=== PATIENT | male | born 1935 | race Caucasian/White ===

== ENCOUNTER 2020-03-27 12:33 | Inpatient (IN) ==
[2020-03-27] MEDS ORDERED: IOPAMIDOL 100 ML BOTTLE IV ONE (12:34)
[2020-03-27] MEDS ORDERED: ONDANSETRON 4 MG/2 ML VIAL IV ONE (12:56)
[2020-03-27] MEDS ORDERED: LACTATED RINGERS 1,000 ML IV ONE ×2 (12:56→15:59)
--- NOTE | 2020-03-27 13:02 | Emergency Department Note ---
Abdominal Pain HPI General Chief Complaint: Abdominal Pain Stated Complaint: abd pain 5 days Time Seen by Provider: 03/27/20 12:49 Source: patient Mode of arrival: ambulatory Limitations: no limitations History of Present Illness HPI Narrative: Narrative: This patient started having abdominal pain again this morning. It is crampy in nature moderately severe not associated with nausea or vomiting. He does not feel like he is passing much gas at this time. Nothing is making the pain better or worse. I saw him last Tuesday with a similar presentation and CT scan was suggestive of either gastroenteritis or an early small bowel obstruction. He was much improved with treatment that night and did go home and has done well and until this morning. Complaint: abdominal pain Onset (ago): hour(s) Consistency: intermittent and colicky Location: diffuse Severity: moderate Quality: cramping Radiation: none Migration to: no migration Improves with: nothing Worsens with: nothing Associated symptoms: Denies nausea, vomiting, diarrhea, fever, chills and constipation Related Data Home Medications Medication Instructions Recorded Confirmed calcium carbonate 600 mg calcium 600 mg PO QDAY 02/12/15 03/27/20 (1,500 mg) tablet ascorbic acid (vitamin C) 1,000 mg 2 g PO QDAY tab 02/02/17 03/27/20 tablet glucosamine sulfate 500 mg tablet 1,000 mg PO QDAY tab 02/02/17 03/27/20 ferrous sulfate 325 mg (65 mg 325 mg PO QDAY tab 02/07/18 03/27/20 iron) tablet vit C 50 mg-E 15 unit-zinc cit 4.5 2 tab PO QDAY 02/07/18 03/27/20 mg-lutein 2.5 mg-zeaxan chew tablet vitamin B complex 1 tab PO Q48H 02/07/18 03/27/20 Allergies Allergy/AdvReac Type Severity Reaction Status Date / Time No Known Drug Allergies Allergy Verified 03/24/20 14:27 Review of Systems ROS ROS Narrative: Narrative: All systems ED: reviewed and negative except as stated. [facility] Narrative Patient History Narrative: Narrative: Medical/Surgical/Family History All Active Problems (Updated 03/27/20 @ 16:18 by Neftali Bazan MD) Abdominal pain (Acute) Partial obstruction of small intestine (Acute) Annual physical exam (Acute) Laceration of finger without complication (Acute) Encounter for removal of sutures (Acute) Diverticulitis (Acute) History of vasectomy (Acute) History of tonsillectomy (Acute) History of intraocular lens implant (Acute) History of inguinal hernia repair (Acute) History of arthroscopic knee surgery (Acute) History of adenoidectomy (Acute) Hypertension, essential (Acute 01/27/15) Hyperlipidemia (Acute) History of colonic polyps (Acute) Chronic obstructive pulmonary disease (Acute) Benign localized prostatic hyperplasia without lower urinary tract symptoms (LUTS) (Acute) Medical History (Updated 03/27/20 @ 16:18 by Neftali Bazan MD) Annual physical exam (Acute) Benign localized prostatic hyperplasia without lower urinary tract symptoms (LUTS) (Acute) Chronic obstructive pulmonary disease (Acute) Diverticulitis (Acute) Encounter for removal of sutures (Acute) History of colonic polyps (Acute) Hyperlipidemia (Acute) no meds Hypertension, essential (Acute 01/27/15) Laceration of finger without complication (Acute) Surgical History (Updated 12/23/16 @ 14:12 by [employer] [place]) History of adenoidectomy (Acute) History of arthroscopic knee surgery (Acute) Right History of colonoscopy (Chronic 08/10/07) History of inguinal hernia repair (Acute) History of intraocular lens implant (Acute) bilateral History of tonsillectomy (Acute) History of vasectomy (Acute) Family History (Updated 02/12/15 @ 13:00 by Gladys Ventura) Father Alcohol abuse Multiple sclerosis at 79y Mother , at 86y Malignant neoplasm of breast Essential hypertension Unknown Cerebrovascular accident Social History Smoking Status: Former smoker Alcohol Intake Frequency: former alcohol drinker Substance Use: does not use Exam Narrative Narrative: Narrative: General Limitations: no limitations Head Head: atraumatic, normocephalic and normal inspection Eye Eye: Present normal appearance, PERRL and EOMI; Absent scleral icterus and conjunctival injection ENT ENT: Present normal exam, normal oropharynx and mucous membranes moist Neck Neck: Present normal inspection and full ROM Chest Chest: Present normal inspection and symmetric chest wall rise Respiratory Respiratory: Present rales/crackles (In the bases only); Absent respiratory distress, wheezes and stridor Cardiovascular Cardiovascular: Present regular rate, normal rhythm and normal heart sounds Adbominal Abdominal: Present soft, tenderness and hyperactive bowel sounds; Absent distention, guarding, rebound, rigidity, organomegaly, mass and pulsatile mass Extremities Extremities: Present normal inspection; Absent pedal edema and pretibial edema Neurological Neurological: Present alert and oriented X3 Psychiatric Psychiatric: Present normal affect Skin Skin: Present warm and dry; Absent rash, diaphoresis and erythema Course Vital Signs Vital signs: Vital Signs Temperature 97.2 F 03/27/20 12:34 Pulse Rate 68 03/27/20 12:34 Respiratory Rate 18 03/27/20 12:34 Blood Pressure 153/94 03/27/20 12:34 Pulse Oximetry (%) 97 03/27/20 12:34 Temperature 97.2 F 03/27/20 12:34 Pulse Rate 62 03/27/20 14:31 Respiratory Rate 18 03/27/20 12:34 Blood Pressure 116/71 03/27/20 16:01 Pulse Oximetry (%) 92 03/27/20 14:31 MDM MDM Narrative Medical decision making narrative: Narrative: CT scan does show a partial small bowel obstruction and he is continued to have pain today. We will plan to admit him to the hospital to Dr. Hobbs. I did discuss this with Dr. Hobbs who will come see him in the emergency room. Differential Diagnosis Differential Diagnosis: includes partial small bowel obstruction as that was slightly evident on his previous CT scan. The rest of his previous CT scan was not that remarkable except for some possible gastroenteritis. Would be unusual for new causes of abdominal pain to develop since Tuesday but we will do a new CT scan to check for things like aortic aneurysm bowel obstruction. Lab Data Lab results reviewed: Yes I reviewed the patient's lab results. Result diagrams: 03/27/20 13:03/27/20 13:01 Labs: Lab Results 03/27/20 03/27/20 03/27/20 Range/Units 13:01 13:01 13: WBC 10.7 (4.50-11.00) K/mcL RBC 4.65 (4.63-6.08) M/mcL Hgb 14.9 (13.7-17.5) g/dL Hct 44.6 (40.1-51.0) % MCV 95.9 (80.0-100.0) fL MCH 32.0 (26.0-34.0) pg MCHC 33.4 (31.0-36.0) g/dL RDW 12.6 (11.5-14.5) % Plt Count 196 (140-440) K/mcL MPV 11.5 H (7.4-10.4) fL Gran % 74.5 (38.0-78.0) % Lymph % (Auto) 14.5 L (15.5-49.0) % [place] % (Auto) 10.1 (1.0-12.0) % Eos % (Auto) 0.7 (0.0-7.0) % Baso % (Auto) 0.2 (0.0-2.0) % Gran # 7.96 (1.80-8.00) K/mcL Lymph # (Auto) 1.55 (1.50-4.80) K/mcL [place] # (Auto) 1.08 H (0.10-0.90) K/mcL Eos # (Auto) 0.08 (0.00-0.70) K/mcL Baso # (Auto) 0.02 (0.00-0.30) K/mcL VBG Lactic Acid 1.0 (0.5-2.0) mmol/L Sodium 139 (133-145) mmol/L Potassium 4.6 (3.3-5.1) mmol/L Chloride 101 (96-108) mmol/L Carbon Dioxide 24 (22-30) mmol/L Anion Gap 14.0 (8-16) BUN 19 (8-23) mg/dl Creatinine 1.0 (0.7-1.2) mg/dl GFR Calculation 67 Glucose 97 (70-105) mg/dL Calcium 9.1 (8.6-10.4) mg/dl Total Bilirubin 0.4 (0.0-1.0) mg/dL AST 19 (0-37) U/l ALT 11 (0-40) U/l Alkaline Phosphatase 55 (39-117) U/L Total Protein 6.5 (5.9-8.4) gm/dL Albumin 4.1 (3.2-5.2) gm/dL Globulin 2.4 (2.2-3.7) gm/dL Albumin/Globulin Ratio 1.7 (1.0-2.3) Lipase 20 (7-60) U/L Urine Color Urine Appearance Urine pH (5.0-9.0) Ur Specific [place] (1.000-1.035) Urine Protein (NEG) mg/dL Urine Glucose (UA) (NEG) mg/dL Urine Ketones (NEG) mg/dL Urine Occult Blood (<0.03) mg/dL Urine Nitrate (NEG) Urine Bilirubin (NEG) mg/dL Urine Urobilinogen (NEG) mg/dL Ur Leukocyte Esterase (NEG) /uL Urine RBC (0-1) /hpf Urine WBC (0-4) /hpf Ur Squamous Epith Cells (0-4) /hpf Ur Transition Epith Cell (0-2) /hpf Urine Bacteria (0) /hpf Ur Culture Indicated? 03/27/20 Range/Units 14:30 WBC (4.50-11.00) K/mcL RBC (4.63-6.08) M/mcL Hgb (13.7-17.5) g/dL Hct (40.1-51.0) % MCV (80.0-100.0) fL MCH (26.0-34.0) pg MCHC (31.0-36.0) g/dL RDW (11.5-14.5) % Plt Count (140-440) K/mcL MPV (7.4-10.4) fL Gran % (38.0-78.0) % Lymph % (Auto) (15.5-49.0) % [place] % (Auto) (1.0-12.0) % Eos % (Auto) (0.0-7.0) % Baso % (Auto) (0.0-2.0) % Gran # (1.80-8.00) K/mcL Lymph # (Auto) (1.50-4.80) K/mcL [place] # (Auto) (0.10-0.90) K/mcL Eos # (Auto) (0.00-0.70) K/mcL Baso # (Auto) (0.00-0.30) K/mcL VBG Lactic Acid (0.5-2.0) mmol/L Sodium (133-145) mmol/L Potassium (3.3-5.1) mmol/L Chloride (96-108) mmol/L Carbon Dioxide (22-30) mmol/L Anion Gap (8-16) BUN (8-23) mg/dl Creatinine (0.7-1.2) mg/dl GFR Calculation Glucose (70-105) mg/dL Calcium (8.6-10.4) mg/dl Total Bilirubin (0.0-1.0) mg/dL AST (0-37) U/l ALT (0-40) U/l Alkaline Phosphatase (39-117) U/L Total Protein (5.9-8.4) gm/dL Albumin (3.2-5.2) gm/dL Globulin (2.2-3.7) gm/dL Albumin/Globulin Ratio (1.0-2.3) Lipase (7-60) U/L Urine Color Yellow Urine Appearance Clear Urine pH 6.0 (5.0-9.0) Ur Specific [place] 1.056 H (1.000-1.035) Urine Protein Neg (NEG) mg/dL Urine Glucose (UA) Negative (NEG) mg/dL Urine Ketones 5/tr A (NEG) mg/dL Urine Occult Blood Neg (<0.03) mg/dL Urine Nitrate Neg (NEG) Urine Bilirubin Neg (NEG) mg/dL Urine Urobilinogen Neg (NEG) mg/dL Ur Leukocyte Esterase Neg (NEG) /uL Urine RBC 5 H (0-1) /hpf Urine WBC < 1 (0-4) /hpf Ur Squamous Epith Cells < 1 (0-4) /hpf Ur Transition Epith Cell < 1 (0-2) /hpf Urine Bacteria 0 (0) /hpf Ur Culture Indicated? No Radiology Data Radiology results reviewed: Yes I reviewed the patient's radiology results. 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: No Clinical Impression: Partial obstruction of small intestine Patient Disposition: Xfer As Inpt ([facility]) Condition: Fair Follow up with: Shekhar Harry MD [Primary Care Provider] - Prescriptions: No Action calcium carbonate 600 mg (1,500 mg) tablet 600 mg PO QDAY RF: 0 ascorbic acid (vitamin C) 1,000 mg tablet 2 g PO QDAY RF: 0 glucosamine sulfate 500 mg tablet 1,000 mg PO QDAY RF: 0 ferrous sulfate [Feosol] 325 mg (65 mg iron) tablet 325 mg PO QDAY RF: 0 vitamin B complex [B Complex-Vitamin B12] tablet 1 tab PO Q48H RF: 0 vit C-E-zinc [id number] [Ocuvite [facility]] 50 mg-15 unit- 4.5 mg-2.5 mg tablet,chewable 2 tab PO QDAY RF: 0
[2020-03-27] MEDS: HYDROmorphone 0.5 MG/0.5 ML SYRINGE IV PRN ×3 (13:19→16:15)
[2020-03-27 13:47] LABS: Basophils # (Auto) 0.02 K/mcL (0.00-0.30); Basophils % (Auto) 0.2 % (0.0-2.0); Eosinophils # (Auto) 0.08 K/mcL (0.00-0.70); Eosinophils % (Auto) 0.7 % (0.0-7.0); Granulocytes % (Auto) 74.5 % (38.0-78.0); Hematocrit 44.6 % (40.1-51.0); Hemoglobin 14.9 g/dL (13.7-17.5); Lymphocytes # (Auto) 1.55 K/mcL (1.50-4.80); Lymphocytes % (Auto) 14.5 % (15.5-49.0); Mean Cell Volume 95.9 fL (80.0-100.0); Mean Corpuscular HGB Conc 33.4 g/dL (31.0-36.0); Mean Platelet Volume 11.5 fL (7.4-10.4); Monocytes # (Auto) 1.08 K/mcL (0.10-0.90); Monocytes % (Auto) 10.1 % (1.0-12.0); Platelet Count 196 K/mcL (140-440); RBC 4.65 M/mcL (4.63-6.08); Red Cell Distribution Width 12.6 % (11.5-14.5); WBC 10.7 K/mcL (4.50-11.00)
[2020-03-27 14:09] LABS: ALT/SGPT 11 U/l (0-40); AST/SGOT 19 U/l (0-37); Albumin 4.1 gm/dL (3.2-5.2); Albumin/Globulin Ratio 1.7 (1.0-2.3); Alkaline Phosphatase 55 U/L (39-117); Bilirubin,Total 0.4 mg/dL (0.0-1.0); Blood Urea Nitrogen 19 mg/dl (8-23); Calcium 9.1 mg/dl (8.6-10.4); Carbon Dioxide 24 mmol/L (22-30); Chloride 101 mmol/L (96-108); Globulin 2.4 gm/dL (2.2-3.7); Glomerular Filtration Rate 67; Glucose 97 mg/dL (70-105)
[2020-03-27 15:35] LABS: Appearance,Urine CLEAR; Bacteria,Urine 0 /hpf (0); Bilirubin,Urine NEG (NEG); Color,Urine YELLOW; Culture Indicated,Urine NO; Glucose,Urine (UA) NEGATIVE (NEG); Ketones,Urine 5/TR mg/dL (NEG); Leukocyte Esterase,Urine NEG /uL (NEG); Nitrate,Urine NEG (NEG); Protein,Urine NEG (NEG); Specific Gravity,Urine 1.056 (1.000-1.035); Urine Blood NEG mg/dL (<0.03); Urine RBC 5 /hpf (0-1); Urine Squamous Epithelial Cell < 1 /hpf (0-4); Urine Transitional Epi Cells < 1 /hpf (0-2); Urine WBC < 1 /hpf (0-4); Urobilinogen,Urine NEG (NEG)
--- NOTE | 2020-03-27 15:37 | Cat Scan Report ---
INDICATION: Abdominal pain COMPARISON: Previous CT scans dated 07/18/2015 and 03/23/2020 TECHNIQUE: Axial images were obtained through the abdomen and pelvis. Sagittally and coronally reformatted images. 80 Isovue 370 injected intravenously. FINDINGS: Lung bases:No focal pulmonary parenchymal infiltrate or mass. There is mild bilateral lower lobe bronchiectasis. There is no pleural fluid. No pericardial fluid. There is a small hiatal hernia. Liver:7 mm low-density lesion in the left lobe of the liver. This is unchanged since 2015 and is benign. Liver is otherwise negative. Liver contour is smooth. Gallbladder, bilary:No calcified gallstones. No gallbladder wall thickening. No dilated intra or extrahepatic bile ducts. Spleen:No splenomegaly. Normal enhancement of splenic and portal veins. Pancreas:No pancreatic mass. No peripancreatic abnormality Adrenal glands:Negative Kidneys, ureters, bladder:No solid or cystic renal mass. No hydronephrosis. No obstructing calculi. There is no hydroureter. No ureteral stone No bladder calculi or detectable mass Gastrointestinal:Marked gastric distention. Stomach is full of fluid with a small amount of gas. Duodenum is prominent. Mechanical small bowel obstruction. Small bowel is dilated to approximately 3.5 cm in cross-sectional diameter. There is a transition point in the right side of the pelvis. There is prominent small bowel feces proximal to this transition point. I am not given a history of previous surgery although the appearance is most suggestive of probable adhesions. Clinical correlation is recommended. There is no evidence for volvulus. There is no closed loop. The bowel wall enhances normally. There is no evidence for bowel infarction. There is mild perienteric infiltration. No pneumoperitoneum. No portal venous gas. There is stool within the colon. No detectable colonic mass. There are sigmoid diverticula. No diverticular abscess. Appendix: The appendix is not well visualized. No evidence for appendicitis Vascular:Severe calcification of the abdominal aorta. No abdominal aortic aneurysm. Celiac trunk and superior mesenteric artery enhance normally without stenosis. Inferior mesenteric artery is opacified Lymphatic:No retroperitoneal or mesenteric adenopathy Mesentery, peritoneum: No free intraperitoneal fluid. No mesenteric or retroperitoneal mass. No pneumoperitoneum. No intra-abdominal abscess Reproductive:Prostate is moderately enlarged with calcification Musculoskeletal:No lumbar compression fractures. Sacrum and pelvis are negative. No hip fracture. This examination was reviewed directly with Dr. Hobbs, 03/27/2020, 1445 IMPRESSION: 1. Mechanical small bowel obstruction with transition point in the right side of the pelvis. Prominent small bowel feces sign 2. Dilated small bowel, duodenum, stomach 3. Sigmoid diverticulosis. No evidence for diverticulitis 4. Extensive vascular calcification. No abdominal aortic aneurysm The exam was performed using radiation dose optimization techniques including, but not limited to, automated exposure control, adjustment of the mA and/or kV according to patient size and use of iterative reconstruction technique. Interpreted and Authenticated by: Mega Valencia 03/27/20
--- NOTE | 2020-03-27 17:12 | General Surg History&Physical ---
HPI History of Present Illness Patient information: Note initiated : 03/27/20 at 5:05 pm Service Date, if different from initiated Date: [] Patient: Camden Albarran a 85 y/o M admitted on for abd pain 5 days. Chief Complaint: [] Chief complaint: small bowel obstruction History of present illness: Mr. Albarran is a 85 year old M admitted with small bowel obstruction. The patient states that on Tuesday of last week he dev eloped severe crampy mid abdominal pain. He was seen in the emergency room about midnight. A CT was done and was nondiagnostic so he was discharged home. He started having regular bowel movements the following morning. He did not have nausea vomiting. He states that he felt better until earlier this morning when his severe crampy abdominal pain recurred after eating. He did not have any nausea or vomiting. His last bowel movement was at 5 AM this morning. He has not had rectal bleeding. Patient had repeat CT which shows suggestion of small bowel obstruction in the distal bowel. He states that he's had 2 prior episodes of diverticulitis that resolved on its own. He is admitted and will have nasogastric decompression and IV fluids with plans for small bowel follow- through in the morning. 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) PFSH PFSH All Active Problems (Updated 03/27/20 @ 17:12 by Chloe Hobbs MD) Abdominal pain (Acute) Partial obstruction of small intestine (Acute) Annual physical exam (Acute) Laceration of finger without complication (Acute) Encounter for removal of sutures (Acute) Diverticulitis (Acute) History of vasectomy (Acute) History of tonsillectomy (Acute) History of intraocular lens implant (Acute) History of inguinal hernia repair (Acute) History of arthroscopic knee surgery (Acute) History of adenoidectomy (Acute) Hypertension, essential (Acute 01/27/15) Hyperlipidemia (Acute) History of colonic polyps (Acute) Chronic obstructive pulmonary disease (Acute) Benign localized prostatic hyperplasia without lower urinary tract symptoms (LUTS) (Acute) Medical History Annual physical exam (Acute) Benign localized prostatic hyperplasia without lower urinary tract symptoms (LUTS) (Acute) Chronic obstructive pulmonary disease (Acute) Diverticulitis (Acute) Encounter for removal of sutures (Acute) History of colonic polyps (Acute) Hyperlipidemia (Acute) no meds Hypertension, essential (Acute 01/27/15) Laceration of finger without complication (Acute) Surgical History History of adenoidectomy (Acute) History of arthroscopic knee surgery (Acute) Right History of colonoscopy (Chronic 08/10/07) History of inguinal hernia repair (Acute) History of intraocular lens implant (Acute) bilateral History of tonsillectomy (Acute) History of vasectomy (Acute) Family History Father Alcohol abuse Multiple sclerosis at 79y Mother , at 86y Malignant neoplasm of breast Essential hypertension Unknown Cerebrovascular accident Social History marital status: education level: high school occupational status: 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 other: 4 children/3 gc/3 ggc smoking status: Former smoker alcohol intake frequency: former alcohol drinker substance use type: does not use additional history: Recovering alcoholic, 1984 MEDS/ALLERGIES Home Medications and Allergies Home Medications Medication Instructions Recorded Confirmed Type calcium carbonate 600 mg calcium 600 mg PO QDAY 02/12/15 03/27/20 History (1,500 mg) tablet ascorbic acid (vitamin C) 1,000 mg 2 g PO QDAY tab 02/02/17 03/27/20 History tablet glucosamine sulfate 500 mg tablet 1,000 mg PO QDAY tab 02/02/17 03/27/20 History ferrous sulfate 325 mg (65 mg 325 mg PO QDAY tab 02/07/18 03/27/20 History iron) tablet vit C 50 mg-E 15 unit-zinc cit 4.5 2 tab PO QDAY 02/07/18 03/27/20 History mg-lutein 2.5 mg-zeaxan chew tablet vitamin B complex 1 tab PO Q48H 02/07/18 03/27/20 History Allergies Allergy/AdvReac Type Severity Reaction Status Date / Time No Known Drug Allergies Allergy Verified 03/24/20 14:27 Physical Examination Vital Signs Vital signs: Temp Pulse Resp BP Pulse Ox 97.2 F 58 L 18 138/78 96 03/27/20 12:34 03/27/20 16:46 03/27/20 12:34 03/27/20 16:46 03/27/20 16:46 General physical appearance General physical exam: well developed, no distress, no pain and chronically ill Eyes Eye exam: other (decreased vision bilaterally) ENT ENT exam: decreased hearing (bilaterally moderately severe hearing loss) Head Head exam IM: Present atraumatic, normal inspection and normocephalic Neck Neck exam: no masses, no bruits, trachea midline, no lymphadenopathy and no venous distension Cardiovascular Cardiovascular exam IM: Present normal rate and rhythm, RRR, +S1 and +S2; Absent JVD Abdomen Abdomen: Present soft, bowel sounds (hyperactive bowel sounds with borborygmi this) and distended (mild mid abdominal distention but without tenderness or mass) Integumentary Integumentary: Present no rash, no growths and no abnormal pigmentation Neurologic Neurologic: Present normal coordination and normal sensation Musculoskeletal Musculoskeletal: Present normal gait and normal posture Psychiatric Psychiatric: Present oriented to time, oriented to person, oriented to place, speech is normal and memory intact Results Labs Result diagrams: 03/27/20 13:01 03/27/20 13:01 Labs: Abnormal lab results 03/27/20 03/27/20 Range/Units 13:01 14:30 MPV 11.5 H (7.4-10.4) fL Lymph % (Auto) 14.5 L (15.5-49.0) % [place] # (Auto) 1.08 H (0.10-0.90) K/mcL Ur Specific [place] 1.056 H (1.000-1.035) Urine Ketones 5/tr A (NEG) mg/dL Urine RBC 5 H (0-1) /hpf Diabetes panel 03/27/20 Range/Units 13:01 Sodium 139 (133-145) mmol/L Potassium 4.6 (3.3-5.1) mmol/L Chloride 101 (96-108) mmol/L Carbon Dioxide 24 (22-30) mmol/L BUN 19 (8-23) mg/dl Creatinine 1.0 (0.7-1.2) mg/dl Glucose 97 (70-105) mg/dL Calcium 9.1 (8.6-10.4) mg/dl AST 19 (0-37) U/l ALT 11 (0-40) U/l Alkaline Phosphatase 55 (39-117) U/L Total Protein 6.5 (5.9-8.4) gm/dL Albumin 4.1 (3.2-5.2) gm/dL Calcium panel 03/27/20 Range/Units 13:01 Calcium 9.1 (8.6-10.4) mg/dl Albumin 4.1 (3.2-5.2) gm/dL Pituitary panel 03/27/20 Range/Units 13:01 Sodium 139 (133-145) mmol/L Potassium 4.6 (3.3-5.1) mmol/L Chloride 101 (96-108) mmol/L Carbon Dioxide 24 (22-30) mmol/L BUN 19 (8-23) mg/dl Creatinine 1.0 (0.7-1.2) mg/dl Glucose 97 (70-105) mg/dL Calcium 9.1 (8.6-10.4) mg/dl Adrenal panel 03/27/20 Range/Units 13:01 Sodium 139 (133-145) mmol/L Potassium 4.6 (3.3-5.1) mmol/L Chloride 101 (96-108) mmol/L Carbon Dioxide 24 (22-30) mmol/L BUN 19 (8-23) mg/dl Creatinine 1.0 (0.7-1.2) mg/dl Glucose 97 (70-105) mg/dL Calcium 9.1 (8.6-10.4) mg/dl Total Bilirubin 0.4 (0.0-1.0) mg/dL AST 19 (0-37) U/l ALT 11 (0-40) U/l Alkaline Phosphatase 55 (39-117) U/L Total Protein 6.5 (5.9-8.4) gm/dL Albumin 4.1 (3.2-5.2) gm/dL All other labs normal. A/P Assessment and plan (1) Partial obstruction of small intestine: Status: Acute (2) Abdominal pain: Status: Acute Qualifiers: Abdominal location: generalized Qualified Code(s): R10.84 - Generalized abdominal pain (3) Hypertension, essential: Status: Acute (4) Chronic obstructive pulmonary disease: Status: Acute Qualifiers: COPD type: emphysema Emphysema type: panlobular Qualified Code(s): J43.1 - Panlobular emphysema Narrative A/P Narrative: IV hydration Nasogastric decompression Small bowel follow-through via nasogastric tube in the morning Operative therapy based on the results of the small bowel follow-through Time Spent With Patient Time: Total time spent is greater than 50% in coordination of care (as documented) at patient's floor/unit and/or counseling patient:
[2020-03-27] MEDS ORDERED: ONDANSETRON 4 MG/2 ML VIAL IV PRN (17:13)
[2020-03-27] MEDS ORDERED: ZOLPIDEM 5 MG TABLET PO PRN (17:18)
--- NOTE | 2020-03-27 18:33 | XRay Report ---
INDICATION: preop evaluation. Small bowel obstruction TECHNIQUE: AP portable semierect upright chest x-ray COMPARISON: None FINDINGS:There is an esophagogastric tube in the stomach. There continues to be gaseous distention of the stomach Lungs:Lungs are negative. No focal pulmonary parenchymal infiltrate or mass Heart, vascular:No significant cardiomegaly. Pulmonary vascularity is normal. No pulmonary edema or pulmonary congestion Mediastinum, zuhair:No mediastinal widening. No hilar mass Pleura:No pleural fluid. No pleural-based mass or calcification Skeletal:Negative. IMPRESSION: 1. Esophagogastric tube in the stomach 2. Otherwise negative AP chest x-ray Interpreted and Authenticated by: Mega Valencia 03/27/20
--- NOTE | 2020-03-27 18:34 | XRay Report ---
INDICATION: NGT placement TECHNIQUE: Supine abdomen. COMPARISON: CT scan dated 03/27/2020 FINDINGS:. Esophagogastric tube in the stomach. Sidehole of the catheter is just past the gastroesophageal junction. There is mild gaseous distention of the stomach. There is continued gas filled dilatation of the small bowel. IMPRESSION: Esophagogastric tube in the proximal stomach Interpreted and Authenticated by: Mega Valencia 03/27/20
[2020-03-27] MEDS: LEVOFLOXACIN 500 MG/100 ML BAG IV SCH (20:17)
[2020-03-27] MEDS: 0.9 % SODIUM CHLORIDE 1,000 ML IV SCH (20:17)
[2020-03-27] MEDS: HYDROmorphone 1 MG/ML SYRINGE IV PRN (21:02)
[2020-03-27] MEDS: 0.9 % SODIUM CHLORIDE 10 ML SYRINGE IV SCH (23:52)
[2020-03-28] MEDS: HYDROmorphone 1 MG/ML SYRINGE IV PRN ×3 (03:02→11:10)
[2020-03-28] MEDS: 0.9 % SODIUM CHLORIDE 10 ML SYRINGE IV SCH ×3 (05:29→22:32)
[2020-03-28] MEDS: 0.9 % SODIUM CHLORIDE 1,000 ML IV SCH ×3 (05:35→19:46)
[2020-03-28 06:56] LABS: Basophils # (Auto) 0.02 K/mcL (0.00-0.30); Basophils % (Auto) 0.3 % (0.0-2.0); Eosinophils # (Auto) 0 K/mcL (0.00-0.70); Eosinophils % (Auto) 0 % (0.0-7.0); Granulocytes % (Auto) 76.3 % (38.0-78.0); Hemoglobin 14.7 g/dL (13.7-17.5); Lymphocytes # (Auto) 0.57 K/mcL (1.50-4.80); Lymphocytes % (Auto) 7.4 % (15.5-49.0); Mean Cell Volume 99.8 fL (80.0-100.0); Mean Platelet Volume 11.2 fL (7.4-10.4); Monocytes # (Auto) 1.23 K/mcL (0.10-0.90); Platelet Count 190 K/mcL (140-440); RBC 4.61 M/mcL (4.63-6.08); Red Cell Distribution Width 12.9 % (11.5-14.5); WBC 7.7 K/mcL (4.50-11.00)
[2020-03-28 07:18] LABS: ALT/SGPT 8 U/l (0-40); AST/SGOT 12 U/l (0-37); Albumin 3.4 gm/dL (3.2-5.2); Albumin/Globulin Ratio 1.5 (1.0-2.3); Alkaline Phosphatase 55 U/L (39-117); Bilirubin,Direct < 0.2 mg/dL (0.0-0.3); Bilirubin,Total 0.8 mg/dL (0.0-1.0); Blood Urea Nitrogen 21 mg/dl (8-23); Calcium 8.3 mg/dl (8.6-10.4); Carbon Dioxide 24 mmol/L (22-30); Chloride 104 mmol/L (96-108); Globulin 2.2 gm/dL (2.2-3.7); Glomerular Filtration Rate 77; Glucose 131 mg/dL (70-105); Lactate Dehydrogenase 175 U/L (94-250); Phosphorous 4.1 mg/dL (2.7-4.5); Triglycerides 42 mg/dl (<150); Uric Acid 4.7 mg/dL (2.5-8.0)
[2020-03-28] MEDS: LEVOFLOXACIN 500 MG/100 ML BAG IV SCH (08:14)
[2020-03-28] MEDS ORDERED: DIATRIZOATE MEGLU/DIATRIZO SOD 30 ML BOTTLE PO ONE (14:01)
--- NOTE | 2020-03-28 14:24 | XRay Report ---
INDICATION: rule out small bowel obstruction TECHNIQUE: Water-soluble contrast material was given. Serial imaging to 4 hours post ingestion COMPARISON: Previous CT scans dated 03/27/2020, 03/23/2020 FINDINGS: There is somewhat delayed transit time through the gastrointestinal tract. There is dilatation of the jejunum. Maximum cross-sectional diameter measures 4.5 cm. Contrast material is within the rectum by 4 hours post injection consistent with partial or resolving mechanical small bowel obstruction. The actual transition point is demonstrated on CT scan but not identified on present examination. There is no pneumatosis. No biliary or portal venous gas. IMPRESSION: 1. Dilated small bowel 2. Contrast material within the rectum by 4 hours post ingestion 3. Appearance is consistent with partial or resolving small bowel obstruction Interpreted and Authenticated by: Mega Valencia 03/28/20
--- NOTE | 2020-03-28 14:45 | General Surgery Progress Note ---
SUBJECTIVE Subjective Patient information: Note initiated : 03/28/20 at 2:40 pm Service Date, if different from initiated Date: [] Patient: Camden Albarran 85 y/o M admitted on 03/27/20 for abd pain 5 days. Chief Complaint: [] Principal diagnosis: partial small bowel obstruction Interval history: patient is clinically improved. he had small bowel follow- through earlier this morning which showed contrast in the rectum 4 hours. He's had multiple bowel movements implants large volume of flatus. He denies nausea. White blood count 7.7, hemoglobin 14.7, hematocrit 46 Constitutional Vitals: Vital Signs Temp Pulse Resp BP Pulse Ox 98.5 F 63 20 140/73 95 03/28/20 10:52 03/28/20 10:52 03/28/20 10:52 03/28/20 10:52 03/28/20 10:52 Period Temp Pulse Resp BP Sys/Webb Pulse Ox Last 24 Hr 97.2 F-99.0 F 58-66 18-22 108-147/66-88 94-98 Intake and Output 03/28/20 03/28/20 03/28/20 05:59 13:59 21:59 Intake Total 1100 Output Total 875 350 Balance -875 750 Weight 160 lb Patient Weight 03/29/20 05:59 Weight 160 lb Intake & Output: Intake & Output 03/28/20 03/28/20 03/28/20 05:59 13:59 21:59 Intake Total 1100 Output Total 875 350 Balance -875 750 Weight 160 lb Intake: IV 1100 Sodium Chloride 0.9% 1,000 ml @ 1000 75 mls/hr IV .[id number] [facility] Rx#: [id number] Tube Feeding 0 Output: Gastric Drainage 600 200 Left Nare 600 200 Void Amount 250 150 Emesis 25 Other: Feeding Ability Independent Urine Appearance Clear Clear Urine Color Dark Yellow Dark Yellow Urine Odor Normal Normal Stool Size Small Stool Color Brown Green Stool Consistency Watery # Bowel Movements 1 Head Head exam: Present atraumatic, normal inspection and normocephalic Eye Eye exam: Present EOMI Pupils: Present normal accommodation and PERRL ENT ENT exam: Present normal exam, normal external ear exam and normal oropharynx Neck Neck exam: Present full ROM; Absent tenderness and thyromegaly Respiratory Respiratory exam: Present normal respiratory exam, rales, rhonchi and wheezes Cardiovascular Cardiovascular exam: Present normal rate and rhythm, RRR, +S1 and +S2; Absent JVD GI/Abdominal GI/Abdominal exam: Present normal bowel sounds, soft and tenderness; Absent distended Extremities Exam Extremities exam: Present full ROM, tenderness and neurovascular intact; Absent pedal edema Back Exam Back exam: Present tenderness Neurological Exam Neurological exam: Present alert, CN II-XII intact, normal gait, oriented X3 and reflexes normal Psychiatric Psychiatric exam: Present anxious, normal affect and normal mood Skin Skin exam: Present intact and normal color; Absent rash A/P Narrative A/P Narrative: discontinue nasogastric tube 2 view abdominal x-rays in the morning MiraLAX 3 times daily Possible discharge in the morning Time Spent With Patient Time: Total time spent is greater than 50% in coordination of care (as documented) at patient's floor/unit and/or counseling patient:
[2020-03-29] MEDS: 0.9 % SODIUM CHLORIDE 10 ML SYRINGE IV SCH (05:44)
[2020-03-29 08:09] LABS: Basophils # (Auto) 0.01 K/mcL (0.00-0.30); Basophils % (Auto) 0.2 % (0.0-2.0); Eosinophils # (Auto) 0.07 K/mcL (0.00-0.70); Eosinophils % (Auto) 1.2 % (0.0-7.0); Granulocytes % (Auto) 63.2 % (38.0-78.0); Hematocrit 39.8 % (40.1-51.0); Hemoglobin 12.8 g/dL (13.7-17.5); Lymphocytes # (Auto) 0.96 K/mcL (1.50-4.80); Lymphocytes % (Auto) 16.2 % (15.5-49.0); Mean Cell Volume 100.3 fL (80.0-100.0); Mean Corpuscular HGB Conc 32.2 g/dL (31.0-36.0); Mean Platelet Volume 11.7 fL (7.4-10.4); Monocytes # (Auto) 1.14 K/mcL (0.10-0.90); Monocytes % (Auto) 19.2 % (1.0-12.0); Platelet Count 157 K/mcL (140-440); RBC 3.97 M/mcL (4.63-6.08); Red Cell Distribution Width 13.2 % (11.5-14.5); WBC 5.9 K/mcL (4.50-11.00)
[2020-03-29 08:26] LABS: Bilirubin,Direct < 0.2 mg/dL (0.0-0.3)
[2020-03-29 08:27] LABS: ALT/SGPT 7 U/l (0-40); AST/SGOT 12 U/l (0-37); Albumin/Globulin Ratio 1.4 (1.0-2.3); Alkaline Phosphatase 45 U/L (39-117); Bilirubin,Total 0.5 mg/dL (0.0-1.0); Blood Urea Nitrogen 24 mg/dl (8-23); Calcium 7.9 mg/dl (8.6-10.4); Carbon Dioxide 26 mmol/L (22-30); Chloride 109 mmol/L (96-108); Globulin 2.2 gm/dL (2.2-3.7); Glomerular Filtration Rate 77; Glucose 89 mg/dL (70-105); Lactate Dehydrogenase 156 U/L (94-250); Triglycerides 54 mg/dl (<150); Uric Acid 4.5 mg/dL (2.5-8.0)
[2020-03-29] MEDS: LEVOFLOXACIN 500 MG/100 ML BAG IV SCH ×2 (08:56→09:13)
[2020-03-29] MEDS: POLYETHYLENE GLYCOL 3350 17 GM PACKET PO SCH ×2 (08:56→13:32)
--- NOTE | 2020-03-29 09:04 | XRay Report ---
INDICATION: f/u of bowel obstruction TECHNIQUE: Supine and upright abdomen. COMPARISON: Previous CT scan dated 03/27/2028. Previous Gastrografin small bowel study dated 03/28/2020 FINDINGS:There is gas and contrast material throughout the colon. Small bowel is markedly improved. Small bowel dilatation has resolved. There is no pneumoperitoneum. No biliary or portal venous gas. There is no pneumatosis IMPRESSION: Markedly improved bowel gas pattern as above Interpreted and Authenticated by: Mega Valencia 03/29/20
--- NOTE | 2020-03-29 11:39 | Discharge Summary ---
Discharge Provider Provider Patient information: Note initiated : 03/29/20 at 11:31 am Service Date, if different from initiated Date: [] Patient: Camden Albarran 85 y/o M admitted on 03/27/20 for abd pain 5 days. Chief Complaint: [] Date of admission: 03/27/20 17:44 Discharge date: 03/29/20 Primary care physician: Shekhar Harry Admitting clinician: Chloe Hobbs Attending physician on admission: Chloe Hobbs Consults: 03/27/20 Consult to Physician [CONS] Stat Comment: Consulting Provider: Chloe Hobbs Reason For Exam: Physician to Consult Attending physician on discharge: Chloe Hobbs Discharging clinician: Chloe Hobbs COURSE Hospital Course Hospital course: 85-year-old male admitted with suspected partial small bowel obstruction. The patient developed crampy abdominal pain with nausea on last Tuesday. At the conus of the increasing pain he was seen in the emergency room. CT of the abdomen was nondiagnostic with no acute findings. He was treated with IV fluids and analgesics and antiemetics and had resolution of symptoms. He states that he felt fairly well until the morning of 27 March when he developed severe pain after eating. He returned to the emergency room or CT is suggested intestinal obstruction with dilation of the stomach duodenum and small bowel down to the distal ileum. There was a suggestion of a transition point in the right lower quadrant. The patient was admitted and started on nasogastric decompression. He received IV hydration. On yesterday a small bowel follow-through was done and this showed transit of the contrast into the rectum 4 hours and this was followed by multiple bowel movements. Nasogastric tube was discontinued and he was started on a diet. He is tolerating his diet well. He has had multiple bowel movements and is passing flatus without difficulty. He has no pain and no distention. Abdominal x-rays this morning shows a normal intestinal gas pattern without evidence of obstruction. Patient is clinically stable and is discharged home with plans for follow-up in the office in 1 week. He does have a history of weight loss which is unintentional. Discharge diagnosis: partial intestinal obstruction Secondary discharge diagnosis: unexplained weight loss Chronic obstructive lung disease Hypertension Reason for admission: severe abdominal pain with distention and evidence of partial intestinal ob Procedures: none Pertinent studies/significant findings: single contrast small bowel follow- through Time Spent with Patient Time attestation: Total time spent providing and/or coordinating discharge services: Physical Examination Vital Signs Vital signs: Temp Pulse Resp BP Pulse Ox 99.4 F H 67 18 127/70 98 03/29/20 07:17 03/29/20 07:17 03/29/20 07:17 03/29/20 07:17 03/29/20 07:17 General physical appearance General physical exam: well developed, no distress, no pain and chronically ill Eyes Eye exam: other (decreased vision bilaterally) ENT ENT exam: decreased hearing (bilaterally moderately severe hearing loss) Head Head exam IM: Present atraumatic, normal inspection and normocephalic Neck Neck exam: no masses, no bruits, trachea midline, no lymphadenopathy and no venous distension Cardiovascular Cardiovascular exam IM: Present normal rate and rhythm, RRR, +S1 and +S2; Absent JVD Abdomen Abdomen: Present soft, bowel sounds (hyperactive bowel sounds with borborygmi this) and distended (mild mid abdominal distention but without tenderness or mass) Integumentary Integumentary: Present no rash, no growths and no abnormal pigmentation Neurologic Neurologic: Present normal coordination and normal sensation Musculoskeletal Musculoskeletal: Present normal gait and normal posture Psychiatric Psychiatric: Present oriented to time, oriented to person, oriented to place, speech is normal and memory intact Discharge Plan Patient/Caregiver Discharge Instructions Activity: increase activity as tolerated and resume usual activities as tolerated Diet: Regular Diet Prescriptions: New polyethylene glycol 3350 [Miralax] 17 gram/dose powder 17 g PO BID MDD 3 doses per day Qty: 510 RF: 5 Continued calcium carbonate 600 mg (1,500 mg) tablet 600 mg PO QDAY RF: 0 ascorbic acid (vitamin C) 1,000 mg tablet 2 g PO QDAY RF: 0 glucosamine sulfate 500 mg tablet 1,000 mg PO QDAY RF: 0 ferrous sulfate [Feosol] 325 mg (65 mg iron) tablet 325 mg PO QDAY RF: 0 vitamin B complex [B Complex-Vitamin B12] tablet 1 tab PO Q48H RF: 0 vit C-E-zinc [id number] [Ocuvite Eye Health] 50 mg-15 unit- 4.5 mg-2.5 mg tablet,chewable 2 tab PO QDAY RF: 0 Follow Up Plan Follow up with: Shekhar Harry MD [Primary Care Provider] - Chloe Hobbs MD [Physician] - 04/08/20 (patient contact office to verify date and time) Patient Disposition: Home, Self-Care Prognosis: Fair Rehab Potential: Good I certify that the patient requires SNF services: No Overall status at discharge: patient is progressing back to baseline Discharge Orders: Discharge Order (Routine); Ordered 03/29/20 Ordered By: Chloe Hobbs Pending Pending Pending: Resuscitation Status Full Code Diet Full Liquid Diet Start Sat Mar 29 640 Hydromorphone HCl (Dilaudid) 1 mg IV Q2HP PRN; Protocol PRN Reason: Per Pain Protocol Last Admin: 03/28/20 11:10 Dose: 1 mg Documented by: Admin: 03/28/20 06:42 Dose: 1 mg Documented by: Admin: 03/28/20 03:02 Dose: 1 mg Documented by: Admin: 03/27/20 21:02 Dose: 1 mg Documented by: DERRICK Sodium Chloride (Sodium Chloride 0.9%) 1,000 mls @ 75 mls/hr IV .[id number] [facility] Last Admin: 03/28/20 19:46 Dose: 75 mls/hr Documented by: Infusion: 03/28/20 19:46 Dose: 75 mls/hr Documented by: Admin: 03/28/20 10:58 Dose: 75 mls/hr Documented by: Infusion: 03/28/20 09:37 Dose: 75 mls/hr Documented by: Admin: 03/28/20 05:35 Dose: Not Given Documented by: Admin: 03/27/20 20:17 Dose: 75 mls/hr Documented by: DERRICK Levofloxacin (Levaquin) 500 mg in 100 mls @ 100 mls/hr IV Q24H YULISA; Protocol Last Admin: 03/29/20 09:13 Dose: Not Given Documented by: Infusion: 03/28/20 09:20 Dose: 0 mls/hr Documented by: Admin: 03/28/20 08:14 Dose: 100 mls/hr Documented by: Infusion: 03/27/20 21:30 Dose: 0 mls/hr Documented by: Admin: 03/27/20 20:17 Dose: 100 mls/hr Documented by: DERRICK Ondansetron HCl (Zofran) 4 mg IV Q6HP PRN PRN Reason: Nausea And Vomiting Last Admin: 03/28/20 08:50 Dose: 4 mg Documented by: ARTHUR Polyethylene Glycol (Miralax) 17 gm PO Q4H [facility] Stop: 03/29/20 13:01 Last Admin: 03/29/20 08:56 Dose: 17 gm Documented by: IRENE Sodium Chloride (Saline Flush) 10 ml IV Q8 YULISA Last Admin: 03/29/20 05:44 Dose: Not Given Documented by: Admin: 03/28/20 22:32 Dose: Not Given Documented by: Admin: 03/28/20 14:14 Dose: Not Given Documented by: Admin: 03/28/20 05:29 Dose: Not Given Documented by: Admin: 03/27/20 23:52 Dose: Not Given Documented by: DERRICK Shift Summary 03/29/20 05:55 Shift Summary by Pippa Llamas Pt patient has not needed pain medication this shift. Pt has had several loose stools. NG tube discontinued. VSS, NS running at 75mL/hr LFA 20g. Pt still NPO except for ice and popsicles. Pain under control at this time and pt has been sleeping on and off. Pt has not had zofran for nausea, and no emesis present. Will update at bedside report. Initialized on 03/29/20 05:55 - END OF NOTE
[2020-03-29] MEDS: 0.9 % SODIUM CHLORIDE 1,000 ML IV SCH (11:51)
== END 2020-03-29 13:40 | disposition home or self-care (01) | DRG 390 ==
LOC: ED 12:33 → MEDSUR 17:44
PROVIDERS: ADMIT Family Medicine Adult Medicine; ATTEND Family Medicine Adult Medicine